=== PATIENT | female | born 1940 | race Caucasian/White ===

== ENCOUNTER 2018-05-03 16:20 | Observation (INO) | payer MEDICARE, BC ==
[~2018-05-03] VITALS: Ht 170.2 cm; Wt 60.0 kg
[~2018-05-03 16:20] MED LIST: AMLO2.5T2 PO; DOXY100C2 PO; ERGO500014 PO; HYDR-3965 PO; LISI-600 PO; ONDA4TAB6 PO
[2018-05-03 16:43] LABS: BASOPHILS % (AUTO) 0.4 % (0-1); EOSINOPHILS # (AUTO) 0.2 X10'3 (0-0.9); EOSINOPHILS % (AUTO) 2.1 % (0-6); HEMATOCRIT 33.4 % (35.0-45.0); HEMOGLOBIN 11.2 g/dl (12.0-16.0); LYMPHOCYTES # (AUTO) 0.8 X10'3 (1.1-4.8); LYMPHOCYTES % (AUTO) 8.2 % (21-51); MEAN CORPUSCULAR HEMOGLOBIN 30.9 PG (27.0-31.0); MEAN CORPUSCULAR HGB CONC 33.6 % (33.0-36.5); MEAN CORPUSCULAR VOLUME 92.2 FL (78-98); MEAN PLATELET VOLUME 6.9 FL (7.4-10.4); MONOCYTES # (AUTO) 0.6 X10'3 (0-0.9); MONOCYTES % (AUTO) 6.1 % (2-12); NEUTROPHILS # (AUTO) 8.5 X10'3 (1.8-7.7); NEUTROPHILS % (AUTO) 83.2 % (42-75); PLATELET COUNT 479 X10'3 (140-440); RED BLOOD COUNT 3.63 X10'6 (4.20-5.60); RED CELL DISTRIBUTION WIDTH 14.1 % (11.5-14.5); WHITE BLOOD COUNT 10.2 X10'3 (4.5-11.0)
[2018-05-03] MEDS ORDERED: normal saline 1000ML IV soln IVB ONE (16:50)
[2018-05-03] MEDS ORDERED: famotidine/PF 10 mg/ml inj IV ONE (16:50)
[2018-05-03 16:51] LABS: PARTIAL THROMBOPLASTIN TIME 24 SECONDS (22-32); PROTHROMBIN TIME 10.3 SECONDS (9.0-12.0)
[2018-05-03 16:56] LABS: ALANINE AMINOTRANSFERASE 20 U/L (12-78); ALBUMIN 3.3 G/DL (3.4-5.0); ALBUMIN/GLOBULIN RATIO 0.9 (1.1-1.5); ALKALINE PHOSPHATASE 91 IU/L (46-116); ANION GAP 9 (8-16); ASPARTATE AMINO TRANSFERASE 18 U/L (10-37); BILIRUBIN,TOTAL 0.4 MG/DL (0.1-1.0); BLOOD UREA NITROGEN 21 MG/DL (7-18); BUN/CREATININE RATIO 15.8 (6.6-38.0); CALCIUM 8.9 MG/DL (8.5-10.1); CHLORIDE 94 MMOL/L (99-107); CREATININE 1.33 MG/DL (0.40-0.90); GLUCOSE 140 MG/DL (70-104); POTASSIUM 4.6 MMOL/L (3.5-5.1); SODIUM 128 MMOL/L (135-145); TOTAL CARBON DIOXIDE 25.5 MMOL/L (24-32); TOTAL PROTEIN 6.9 G/DL (6.4-8.2); eGFR 38 ML/MIN
[2018-05-03 17:07] LABS: LIPASE 176 U/L (73-393)
[2018-05-03] MEDS ORDERED: zolpidem 5mg tablet PO PRN (18:00)
[2018-05-03] MEDS ORDERED: mag hydrox/Alum hydrox/simeth 30ml oral suspension PO PRN (18:00)
[2018-05-03] MEDS ORDERED: ondansetron/PF 4mg/2ml inj IV PRN ×2 (18:00)
[2018-05-03] MEDS ORDERED: HYDROcodone/acetaminophen 5mg/325mg tablet PO PRN (18:00)
[2018-05-03] MEDS ORDERED: magnesium hydroxide 30ml (MOM) UD suspension PO PRN (18:00)
[2018-05-03] MEDS ORDERED: HYDROcodone/acetaminophen 10/325mg tab PO PRN (18:00)
[2018-05-03] MEDS ORDERED: acetaminophen 325mg tablet PO PRN (18:00)
[2018-05-03] MEDS ORDERED: hydrALAZINE 20mg/ml inj. IV PRN (18:10)
[2018-05-03] MEDS: normal saline 1000ml 1,000 ML IV SCH ×3 (18:44→22:54)
[2018-05-03 18:51] LABS: CLARITY,URINE Cloudy (Clear); COLOR,URINE Yellow (Yellow); GLUCOSE, URINE Negative (Neg); KETONES,URINE Negative (Neg); LEUKOCYTE ESTERASE ,URINE Small (Neg); NITRITES, URINE Negative (Neg); OCCULT BLOOD,URINE Negative (Neg); PROTEIN,URINE 30 mg/dl (Neg)
[2018-05-03 18:55] LABS: UA COLLECTION TYPE CLN CATCH MIDSTREAM
[2018-05-03 18:59] LABS: BACTERIA,URINE FEW /HPF (Neg); RBC,URINE NONE SEEN /HPF (0-2); RENAL CELLS, URINE FEW /HPF; SQUAMOUS EPITHELIAL CELL,UR MODERATE /LPF (FEW)
[2018-05-03] MEDS ORDERED: MELA3TAB PO (19:06)
[2018-05-03] MEDS ORDERED: HYDR-3972 PO (19:06)
[2018-05-03] MEDS ORDERED: METO-467 PO (19:06)
[2018-05-03] MEDS ORDERED: PRAV40TA3 PO (19:06)
[2018-05-03] MEDS ORDERED: OMEP40CA37 PO (19:06)
[2018-05-03] MEDS ORDERED: DOCU100C33 PO (19:06)
[2018-05-03] MEDS ORDERED: LISI10TA4 PO (19:06)
[2018-05-03] MEDS ORDERED: ASPI-1265 PO (19:06)
[2018-05-03] MEDS ORDERED: AMIO200T57 PO (19:06)
[2018-05-03] MEDS ORDERED: MULT-685 PO (19:06)
[2018-05-03] MEDS ORDERED: DOCU-28 PO (19:06)
[2018-05-03] MEDS: diatr meglu/diatrizoate 30ml oral sol.-(3 dose) bottle PO SCH (22:54)
[2018-05-03] MEDS ORDERED: diphenhydrAMINE 25mg capsule PO PRN (23:55)
[2018-05-04 02:00] VITALS: BP 157/70
[2018-05-04 05:22] LABS: BASOPHILS % (AUTO) 0.5 % (0-1); EOSINOPHILS # (AUTO) 0.2 X10'3 (0-0.9); EOSINOPHILS % (AUTO) 2.2 % (0-6); HEMATOCRIT 31.8 % (35.0-45.0); HEMOGLOBIN 10.8 g/dl (12.0-16.0); LYMPHOCYTES # (AUTO) 1.4 X10'3 (1.1-4.8); LYMPHOCYTES % (AUTO) 16.1 % (21-51); MEAN CORPUSCULAR HEMOGLOBIN 31.2 PG (27.0-31.0); MEAN CORPUSCULAR VOLUME 91.6 FL (78-98); MEAN PLATELET VOLUME 7.5 FL (7.4-10.4); MONOCYTES # (AUTO) 0.9 X10'3 (0-0.9); MONOCYTES % (AUTO) 10.7 % (2-12); NEUTROPHILS # (AUTO) 6.1 X10'3 (1.8-7.7); NEUTROPHILS % (AUTO) 70.5 % (42-75); PLATELET COUNT 422 X10'3 (140-440); RED BLOOD COUNT 3.47 X10'6 (4.20-5.60); RED CELL DISTRIBUTION WIDTH 14.1 % (11.5-14.5); WHITE BLOOD COUNT 8.7 X10'3 (4.5-11.0)
[2018-05-04 05:51] LABS: ALBUMIN 3.1 G/DL (3.4-5.0); ANION GAP 10 (8-16); BLOOD UREA NITROGEN 16 MG/DL (7-18); BUN/CREATININE RATIO 13.7 (6.6-38.0); CALCIUM 8.8 MG/DL (8.5-10.1); CHLORIDE 100 MMOL/L (99-107); CREATININE 1.17 MG/DL (0.40-0.90); GLUCOSE 93 MG/DL (70-104); POTASSIUM 4.4 MMOL/L (3.5-5.1); SODIUM 134 MMOL/L (135-145); TOTAL CARBON DIOXIDE 24.4 MMOL/L (24-32); eGFR 45 ML/MIN
[2018-05-04 06:00] VITALS: BP 119/60
[2018-05-04] MEDS: diatr meglu/diatrizoate 30ml oral sol.-(3 dose) bottle PO SCH ×2 (07:34→08:53)
[2018-05-04] MEDS: busPIRone 5mg tablet PO SCH ×3 (08:53→20:06)
[2018-05-04] MEDS: enoxaparin 40mg/0.4ml syringe SUBCUT SCH (08:54)
[2018-05-04] MEDS: pantoprazole 40 MG vial IV SCH (08:55)
[2018-05-04] MEDS: normal saline 1000ml 1,000 ML IV SCH (09:09)
[2018-05-04 11:00] VITALS: BP 149/73
[2018-05-04] MEDS ORDERED: lactulose 20gm/30ml cup PO ONE (12:20)
[2018-05-04 15:00] VITALS: BP 148/73
[2018-05-04 19:00] VITALS: BP 109/57
[2018-05-04] MEDS ORDERED: DOCUSATE SODIUM PO SCH (20:00)
[2018-05-04] MEDS: docusate sod 100mg capsule PO SCH (20:06)
[2018-05-04] MEDS: metoprolol tartrate 25mg tablet PO SCH (20:06)
[2018-05-04] MEDS: amiodarone 200mg tablet PO SCH (20:06)
[2018-05-04] MEDS ORDERED: atorvastatin 10mg tablet PO SCH (21:00)
[2018-05-04] MEDS ORDERED: Melatonin 3mg tablet PO SCH (21:00)
[2018-05-04] MEDS ORDERED: lisinopril 10 MG tablet PO SCH (21:00)
[2018-05-04 23:00] VITALS: BP 127/66
[2018-05-05 03:00] VITALS: BP 168/76
[2018-05-05 05:48] LABS: BASOPHILS # (AUTO) 0.1 X10'3 (0-0.2); EOSINOPHILS # (AUTO) 0.2 X10'3 (0-0.9); EOSINOPHILS % (AUTO) 3.1 % (0-6); HEMATOCRIT 31.8 % (35.0-45.0); HEMOGLOBIN 10.8 g/dl (12.0-16.0); LYMPHOCYTES # (AUTO) 1.4 X10'3 (1.1-4.8); LYMPHOCYTES % (AUTO) 19.7 % (21-51); MEAN CORPUSCULAR HEMOGLOBIN 31.1 PG (27.0-31.0); MEAN CORPUSCULAR VOLUME 91.4 FL (78-98); MEAN PLATELET VOLUME 7.5 FL (7.4-10.4); MONOCYTES # (AUTO) 0.7 X10'3 (0-0.9); MONOCYTES % (AUTO) 9.6 % (2-12); NEUTROPHILS # (AUTO) 4.9 X10'3 (1.8-7.7); NEUTROPHILS % (AUTO) 66.6 % (42-75); PLATELET COUNT 435 X10'3 (140-440); RED BLOOD COUNT 3.48 X10'6 (4.20-5.60); WHITE BLOOD COUNT 7.4 X10'3 (4.5-11.0)
[2018-05-05 06:00] VITALS: BP 145/71
[2018-05-05 06:18] LABS: ALBUMIN 3.2 G/DL (3.4-5.0); ANION GAP 9 (8-16); BLOOD UREA NITROGEN 12 MG/DL (7-18); BUN/CREATININE RATIO 9.4 (6.6-38.0); CALCIUM 8.7 MG/DL (8.5-10.1); CHLORIDE 100 MMOL/L (99-107); CREATININE 1.28 MG/DL (0.40-0.90); GLUCOSE 106 MG/DL (70-104); POTASSIUM 4.1 MMOL/L (3.5-5.1); SODIUM 134 MMOL/L (135-145); TOTAL CARBON DIOXIDE 25.4 MMOL/L (24-32); eGFR 40 ML/MIN
[2018-05-05] MEDS ORDERED: non-formulary drug (Omeprazole (Prilosec) 0.5 CAP) PO SCH (08:00)
[2018-05-05] MEDS ORDERED: aspirin 81mg tab.chew PO SCH (08:00)
[2018-05-05] MEDS ORDERED: multivitamins, therapeutics tablet PO SCH (08:00)
[2018-05-05] MEDS: amiodarone 200mg tablet PO SCH (08:22)
[2018-05-05] MEDS: pantoprazole 40 MG vial IV SCH (08:22)
[2018-05-05] MEDS: metoprolol tartrate 25mg tablet PO SCH (08:23)
[2018-05-05] MEDS: busPIRone 5mg tablet PO SCH ×2 (08:23→12:47)
[2018-05-05] MEDS: docusate sod 100mg capsule PO SCH (08:23)
[2018-05-05] MEDS: enoxaparin 40mg/0.4ml syringe SUBCUT SCH (08:24)
[2018-05-05] MEDS: normal saline 1000ml 1,000 ML IV SCH (09:59)
[2018-05-05 11:00] VITALS: BP 144/70
[2018-05-05] MEDS ORDERED: BUSP5TAB26 PO (12:34)
[2018-05-05] MEDS ORDERED: ATOR10TA PO (12:34)
[2018-05-05] MEDS ORDERED: LISI10TA4 PO (12:34)
[2018-05-05 15:00] VITALS: BP 170/75
[2018-05-06] MEDS ORDERED: pantoprazole 40mg Tablet.DR PO SCH (07:30)
== END 2018-05-05 15:30 | disposition home health service (06) ==
LOC: ER 16:20 → ED HOLD 17:59 → EDBEDREQ 18:56 → PCU 3S 20:02
PROVIDERS: ADMIT Family Medicine; ATTEND Family Medicine
DX: N17.9 Acute kidney failure, unspecified (principal); I12.9 Hypertensive chronic kidney disease with stage 1 through stage 4 chronic kidney disease, or unspecified chronic kidney disease; N18.9 Chronic kidney disease, unspecified; I25.10 Atherosclerotic heart disease of native coronary artery without angina pectoris; E78.5 Hyperlipidemia, unspecified; F03.90 Unspecified dementia, unspecified severity, without behavioral disturbance, psychotic disturbance, mood disturbance, and anxiety; F41.9 Anxiety disorder, unspecified; E87.1 Hypo-osmolality and hyponatremia; J44.9 Chronic obstructive pulmonary disease, unspecified; K59.00 Constipation, unspecified; R62.7 Adult failure to thrive; I25.2 Old myocardial infarction; Z95.1 Presence of aortocoronary bypass graft; Z87.891 Personal history of nicotine dependence; Z85.43 Personal history of malignant neoplasm of ovary; Z87.441 Personal history of nephrotic syndrome; Z90.710 Acquired absence of both cervix and uterus
CPT/HCPCS: 36415; 71045; 74176; 80048; 80053; 81001; 83690; 84484; 85025; 85610; 85730; 87070; 87088; 93005; 96361; 96372; 96374; 96375; 96376; 99285; C9113; G0378; J1650; J3490; J7030; Q0163; Q9963

== ENCOUNTER 2018-06-11 06:11 | Emergency (ER) | payer MEDICARE, BC ==
[~2018-06-11] VITALS: Ht 170.2 cm; Wt 62.7 kg
[~2018-06-11 06:11] MED LIST changes: +AMIO200T57 PO; -AMLO2.5T2 PO; +ASPI-1265 PO; +ATOR10TA PO; +BUSP5TAB26 PO; +DOCU-28 PO; +DOCU100C33 PO; -DOXY100C2 PO; -ERGO500014 PO; -HYDR-3965 PO; +HYDR-3972 PO; -LISI-600 PO; +LISI10TA4 PO; +METO-467 PO; +OMEP40CA37 PO; -ONDA4TAB6 PO
[2018-06-11 06:45] LABS: BASOPHILS # (AUTO) 0.1 X10'3 (0-0.2); BASOPHILS % (AUTO) 0.9 % (0-1); EOSINOPHILS # (AUTO) 0.2 X10'3 (0-0.9); EOSINOPHILS % (AUTO) 2.2 % (0-6); HEMOGLOBIN 11.5 g/dl (12.0-16.0); LYMPHOCYTES # (AUTO) 1.4 X10'3 (1.1-4.8); LYMPHOCYTES % (AUTO) 19.2 % (21-51); MEAN CORPUSCULAR HGB CONC 34.7 % (33.0-36.5); MEAN CORPUSCULAR VOLUME 92.2 FL (78-98); MEAN PLATELET VOLUME 7.2 FL (7.4-10.4); NEUTROPHILS # (AUTO) 4.7 X10'3 (1.8-7.7); NEUTROPHILS % (AUTO) 64.7 % (42-75); PLATELET COUNT 352 X10'3 (140-440); RED BLOOD COUNT 3.58 X10'6 (4.20-5.60); RED CELL DISTRIBUTION WIDTH 15.1 % (11.5-14.5); WHITE BLOOD COUNT 7.3 X10'3 (4.5-11.0)
[2018-06-11 06:54] LABS: PARTIAL THROMBOPLASTIN TIME 24 SECONDS (22-32); PROTHROMBIN TIME 10.3 SECONDS (9.0-12.0)
[2018-06-11 07:00] LABS: ALANINE AMINOTRANSFERASE 34 U/L (12-78); ALBUMIN 3.6 G/DL (3.4-5.0); ALKALINE PHOSPHATASE 74 IU/L (46-116); ANION GAP 9 (8-16); ASPARTATE AMINO TRANSFERASE 20 U/L (10-37); BILIRUBIN,TOTAL 0.4 MG/DL (0.1-1.0); BLOOD UREA NITROGEN 25 MG/DL (7-18); BUN/CREATININE RATIO 16.9 (6.6-38.0); CALCIUM 8.7 MG/DL (8.5-10.1); CHLORIDE 96 MMOL/L (99-107); CREATININE 1.48 MG/DL (0.40-0.90); GLUCOSE 102 MG/DL (70-104); POTASSIUM 4.8 MMOL/L (3.5-5.1); SODIUM 131 MMOL/L (135-145); TOTAL CARBON DIOXIDE 25.6 MMOL/L (24-32); TOTAL PROTEIN 7.1 G/DL (6.4-8.2); eGFR 34 ML/MIN
[2018-06-11] MEDS ORDERED: nitroGLYCERIN 0.2mg/hour patch TD ONE (08:15)
[2018-06-11] MEDS ORDERED: aspirin 81mg tab.chew PO ONE (08:15)
[2018-06-11 11:25] VITALS: BP 156/62
== END 2018-06-11 11:26 | disposition home or self-care (01) ==
LOC: ER 06:11
DX: M79.601 Pain in right arm (principal); I25.10 Atherosclerotic heart disease of native coronary artery without angina pectoris; F17.210 Nicotine dependence, cigarettes, uncomplicated; Z95.1 Presence of aortocoronary bypass graft; Z88.0 Allergy status to penicillin; Z79.82 Long term (current) use of aspirin; Z79.899 Other long term (current) drug therapy
CPT/HCPCS: 36415; 71045; 80053; 84484; 85025; 85610; 85730; 93005; 99285; A6222; A6257

== ENCOUNTER 2023-04-24 17:30 | Emergency (ER) | payer MEDICARE, BC ==
[~2023-04-24] VITALS: Ht 170.2 cm; Wt 61.4 kg
[~2023-04-24 17:30] MED LIST changes: +AMI200T PO; -AMIO200T57 PO; +LISI10TA27 PO; -LISI10TA4 PO; +OMEP40CA21 PO; -OMEP40CA37 PO
[2023-04-24 17:34] VITALS: BP 137/78
[2023-04-24] MEDS ORDERED: succinylcholine 20mg/ml inj IV ONE (18:03)
[2023-04-24] MEDS ORDERED: LORazepam 2 mg/ml vial ONE (18:03)
[2023-04-24] MEDS ORDERED: etomidate 2mg/ml inj. ONE (18:03)
--- NOTE | 2023-04-24 18:19 | NUR ---
Pt's son states she does have a PMHX of dementia
[2023-04-24] MEDS ORDERED: bacitracin 15gm ointment TP ONE (20:10)
== END 2023-04-24 21:22 | disposition home or self-care (01) ==
LOC: ER 17:31
DX: S52.121A Displaced fracture of head of right radius, initial encounter for closed fracture (principal); S09.90XA Unspecified injury of head, initial encounter; X58.XXXA Exposure to other specified factors, initial encounter; Y93.89 Activity, other specified; Y92.89 Other specified places as the place of occurrence of the external cause; Y99.8 Other external cause status
CPT/HCPCS: 29105; 70450; 73080; 73090; 99284; A6222; J0330; J2060; J3490; A4565; A6258; A6449

== ENCOUNTER 2024-10-28 17:41 | Emergency (ER) | payer MEDICARE, BC ==
[~2024-10-28] VITALS: Ht 167.6 cm; Wt 132.0 kg
[2024-10-29 00:02] LABS: BILIRUBIN,URINE NEGATIVE (Neg); CLARITY,URINE CLEAR (Clear); COLOR,URINE YELLOW (Yellow); GLUCOSE, URINE NEGATIVE (Neg); KETONES,URINE NEGATIVE (Neg); LEUKOCYTE ESTERASE ,URINE NEGATIVE (Neg); NITRITES, URINE NEGATIVE (Neg); OCCULT BLOOD,URINE NEGATIVE (Neg); PH,URINE 5.5 (4.8-8.0); PROTEIN,URINE 100 mg/dl (Neg); UROBILINOGEN,URINE 0.2 E.U/dL (0.2-1.0)
[2024-10-29 00:09] LABS: BACTERIA,URINE FEW /HPF (Neg); SQUAMOUS EPITHELIAL CELL,UR FEW /LPF (FEW); UA COLLECTION TYPE CLN CATCH MIDSTREAM
[2024-10-29 00:10] LABS: FINE GRANULAR CAST 0-3 /LPF (NEGATIVE); RBC,URINE NONE SEEN /HPF (0-2); WBC,URINE NONE SEEN /HPF (0-4)
[2024-10-29 02:03] VITALS: PULSE 76
[2024-10-29 02:05] VITALS: BP 159/80; RESP 18; TEMP 98.9; O2SAT 99
== END 2024-10-29 02:36 | disposition home or self-care (01) ==
LOC: ER 17:42
DX: R05.8 Other specified cough (principal); G31.84 Mild cognitive impairment of uncertain or unknown etiology; F17.200 Nicotine dependence, unspecified, uncomplicated; I25.10 Atherosclerotic heart disease of native coronary artery without angina pectoris; Z85.43 Personal history of malignant neoplasm of ovary; Z95.1 Presence of aortocoronary bypass graft; Z88.0 Allergy status to penicillin
CPT/HCPCS: 71045; 81001; 81003; 93005; 99285